=== PATIENT | female | born 1975 | race Two or more races ===

== ENCOUNTER 2020-07-19 11:00 | Outpatient (CLI) | payer OTHER | END 2020-07-19 23:59 | disposition home or self-care (01) | LOC: WOU 11:00 | PROVIDERS: ATTEND Specialist | DX: I96 Gangrene, not elsewhere classified (principal); I74.3 Embolism and thrombosis of arteries of the lower extremities; Z89.432 Acquired absence of left foot; Z89.431 Acquired absence of right foot; I10 Essential (primary) hypertension | CPT/HCPCS: G0463 ==